=== PATIENT | female | born 1975 | race African-American/Black ===

== ENCOUNTER 2019-05-13 18:28 | Inpatient (IN) | payer SELFPAY ==
--- NOTE | 2019-05-13 18:59 | RAD ---
XR Chest Pa Lat STANDARD History: Cough and chest pain Comparison: Radiograph January 07, 2019 Findings: Lungs are clear. No pneumothorax or effusion. Cardiac silhouette and mediastinal contours a re within normal limits. No acute osseous abnormality. Impression: No acute intrathoracic abnormality.
[2019-05-13 19:36] LABS: Bacteria/HPF None Seen HPF (None Seen); Bilirubin Negative (Negative); Blood, Urine 1+ (Negative); Clarity Clear (Clear); Glucose, Urine (Dipstick) Normal (Negative); Leukocyte Negative Leu/uL (Negative); Nitrite Negative (Negative); Protein, Urine (Dipstick) 30 mg/dL (Neg-Trace); Urobilinogen Normal mg/dL (Less than 2); WBC/HPF 0-3 HPF (0-3)
[2019-05-13] MEDS ORDERED: Diltiazem 125 MG/25 ML ONE (19:51)
[2019-05-13] MEDS ORDERED: Magnesium 2 GM/50 ML BAG (IN WATER) ONE (19:51)
[2019-05-13] MEDS ORDERED: Dexamethasone 4 mg/ml Vial ONE (19:51)
[2019-05-13] MEDS ORDERED: Albuterol Sulfate 2.5 mg/3 ml Neb ONE (19:52)
[2019-05-13 20:24] LABS: #Basophils 0.1 thou/uL (0.0-0.2); #Eosinphils 0.3 thou/uL (0.0-0.7); #Lymphocytes 3.2 thou/uL (1.20-3.40); #Monocytes 0.4 thou/uL (0.11-0.59); #Neutrophils 5.7 thou/uL (1.40-6.50); %Eosinophils 3.2 % (0.0-10.0); %Lymphocytes 33.1 % (21.0-51.0); %Monocytes 4.1 % (0.0-10.0); %Neutrophils 58.5 % (42.0-75.0); Hemoglobin 13.3 g/dL (12.0-16.0); Mean Corpuscular Hemoglobin 27.9 pg (27.0-31.0); Mean Corpuscular Volume 82.2 fL (78.0-98.0); Mean Platelet Volume 8.3 fL (7.4-10.4); Platelet Count 251 thou/uL (130-400); RBC Distribution Width 12.8 % (11.5-14.5); Red Blood Cell (RBC) Count 4.77 mill/uL (4.20-5.40); White Blood Cell (WBC) Count 9.8 thou/uL (4.8-10.8)
[2019-05-13 20:45] LABS: ALT (SGPT) 27 U/L (8-55); AST (SGOT) 20 U/L (5-34); Alkaline Phosphatase 93 U/L (40-110); Anion Gap 14 mmol/L (10-20); BUN (Urea Nitrogen) 12 mg/dL (7.0-18.7); Bilirubin, Total 0.3 mg/dL (0.2-1.2); CK (CPK) 121 U/L (29-168); Calc. Creatinine Clearance 0 mL/min (70-130); Calcium 8.7 mg/dL (7.8-10.44); Carbon Dioxide 30 mmol/L (22-29); Chloride 98 mmol/L (98-107); Estimated GFR-MDRD 72; Globulin 3.5 g/dL (2.4-3.5); Glucose 88 mg/dL (70-105); Lipase 20 U/L (8-78); Protein, Total 7.5 g/dL (6.0-8.3); Sodium 139 mmol/L (136-145)
[2019-05-13 20:54] LABS: Potassium 2.7 mmol/L (3.5-5.1)
[2019-05-13] MEDS ORDERED: Potassium Chloride 20 MEQ/100 ML PREMIX BAG ONE (20:58)
[2019-05-13] MEDS ORDERED: Potassium Chloride 20 MEQ TAB ONE (20:59)
[2019-05-13] MEDS ORDERED: Ondansetron PF 4 MG/2 ML Vial ONE (21:22)
[2019-05-13] MEDS ORDERED: Aspirin Chewable 81 MG TAB ONE (22:35)
[2019-05-13] MEDS ORDERED: hydrALAZINE 20 MG/ML VIAL ONE (22:35)
[2019-05-14 00:47] LABS: Troponin I 0.032 ng/mL (< 0.028)
[2019-05-14] MEDS ORDERED: Ondansetron ODT 4 MG TAB SL PRN (01:45)
[2019-05-14] MEDS ORDERED: Sodium Chloride 0.9% 1,000 ML IV SCH (01:45)
[2019-05-14] MEDS ORDERED: Ondansetron PF 4 MG/2 ML Vial IVP PRN ×2 (01:45→10:20)
[2019-05-14] MEDS ORDERED: hydrALAZINE 20 MG/ML VIAL SLOW IVP PRN (01:49)
[2019-05-14 03:22] LABS: Troponin I 0.041 ng/mL (< 0.028)
[2019-05-14 03:45] VITALS: BMI 34.6
[2019-05-14] MEDS ORDERED: Calcium Carbonate 500 MG ChewTAB PO PRN (10:20)
[2019-05-14] MEDS ORDERED: Acetaminophen 325 MG TAB PO PRN (10:20)
[2019-05-14] MEDS ORDERED: Ondansetron ODT 4 MG TAB PO PRN (10:20)
[2019-05-14] MEDS ORDERED: Senokot S 8.6-50 MG TAB PO PRN (10:20)
[2019-05-14] MEDS ORDERED: cloNIDine 0.1 MG TAB PO PRN (10:26)
[2019-05-14] MEDS ORDERED: Lisinopril 2.5 MG TAB PO SCH (10:30)
[2019-05-14] MEDS ORDERED: Carvedilol 6.25 MG TAB PO SCH ×2 (10:30)
[2019-05-14 11:14] LABS: Anion Gap 10 mmol/L (10-20); BUN (Urea Nitrogen) 11 mg/dL (7.0-18.7); Calc. Creatinine Clearance 93 mL/min (70-130); Calcium 7.9 mg/dL (7.8-10.44); Carbon Dioxide 26 mmol/L (22-29); Chloride 103 mmol/L (98-107); Estimated GFR-MDRD 84; Glucose 138 mg/dL (70-105); Potassium 3.4 mmol/L (3.5-5.1); Sodium 136 mmol/L (136-145)
[2019-05-14] MEDS ORDERED: Losartan 25 MG TAB PO SCH (11:15)
[2019-05-14 11:18] LABS: BHCG - Serum Negative (NEGATIVE); Pregs Control Background? CLEAR/WHITE (CLR/WHITE); Pregs Control Bar Appear? YES (CONTROL BAR)
[2019-05-14 11:23] LABS: Troponin I 0.713 ng/mL (< 0.028)
[2019-05-14] MEDS: Potassium Chloride 20 MEQ TAB PO SCH ×2 (11:39→17:36)
[2019-05-14] MEDS: Cyclobenzaprine 10 MG TAB PO PRN (11:42)
[2019-05-14] MEDS ORDERED: Aspirin 81 mg Enteric Coated Tablet PO SCH (12:00)
[2019-05-14] MEDS: Carvedilol 6.25 MG TAB PO SCH (17:36)
[2019-05-14] MEDS: ALPRAZolam 0.25 MG TAB PO PRN (17:44)
[2019-05-14] MEDS: Doxycycline 100 MG CAP PO SCH (19:55)
[2019-05-14] MEDS ORDERED: Amlodipine 5 MG TAB PO SCH ×2 (21:00)
[2019-05-14] MEDS ORDERED: Carvedilol 25 MG TAB PO SCH (21:00)
[2019-05-15 05:55] LABS: Anion Gap 12 mmol/L (10-20); BUN (Urea Nitrogen) 18 mg/dL (7.0-18.7); Calc. Creatinine Clearance 83 mL/min (70-130); Calcium 7.8 mg/dL (7.8-10.44); Carbon Dioxide 23 mmol/L (22-29); Chloride 106 mmol/L (98-107); Estimated GFR-MDRD 73; Glucose 105 mg/dL (70-105); Sodium 137 mmol/L (136-145)
[2019-05-15 06:51] LABS: CKMB 6.3 ng/mL (0-6.6)
[2019-05-15] MEDS ORDERED: Nitroglycerin 0.4 MG TAB (25 Tab Bottle) ONE (07:19)
--- NOTE | 2019-05-15 07:22 | HP ---
PRIMARY CARE: [facility]. CHIEF COMPLAINT: Chest discomfort with shortness of breath. HISTORY OF PRESENT ILLNESS: The patient is a 44-year-old female who recently relocated to [place], presented to the hospital with above complaints. The patient has history of hypertension and asthma. She denies recent asthma exacerbation. The patient recently had flu-like symptoms up to temperature of 101 along with cough. Earlier today, her symptoms got worse along with chest discomfort and worsening shortness of breath, for which she presented to the emergency room. The chest discomfort was pressure-like 8/10 without any radiation. She denies recent immobilization, travel. The cough was essentially dry. She denies any orthopnea or paroxysmal nocturnal dyspnea. No heartburn or dyspepsia reported. In the emergency room, initial vital signs showed temperature 98.7, respirations of 16, pulse rate of 83 with a blood pressure of 209/124. A chest x-ray showed increased bronchopulmonary markings. She received Levaquin, aspirin, 20 mg of hydralazine, Zofran, potassium, magnesium, 20 mg of IV Cardizem, 10 mg of Decadron, albuterol nebulizer treatment, DuoNeb along with IV fluids due to transient hypotension with blood pressure of 80/36. She denies any chest discomfort at this time. Shortness of breath, significantly improved. PAST MEDICAL HISTORY: 1. Hypertension. 2. Mild intermittent asthma. 3. ?CHF 4. ?TIA PAST SURGICAL HISTORY: 1. x3. 2. Hernia repair. 3. Ovarian biopsy. 4. Partial hysterectomy. ALLERGIES: THE PATIENT IS ALLERGIC TO CODEINE AND SULFA. CURRENT HOME MEDICATION: 1. Albuterol inhaler as needed. 2. Two weeks ago, the patient was started on hypertension medications at Urgent [facility] in [place]. 3. The patient takes amlodipine 10 mg daily. 4. Carvedilol 25 mg b.i.d.. SOCIAL HISTORY: The patient currently works at [employer]. She denies current use of smoking, alcohol, or drug use. FAMILY HISTORY: Negative for premature coronary artery disease. REVIEW OF SYSTEMS: All other review of systems was reviewed and were found negative. PHYSICAL EXAMINATION: VITAL SIGNS: As discussed above. GENERAL: A 44-year-old female, in no apparent distress. Anxious appearing. HEENT: Head, atraumatic and normocephalic. Sclerae anicteric. Moist mucous membrane. No oral lesion. NECK: Supple. No JVD appreciated. No carotid bruit. LUNGS: Clear to auscultation bilaterally. No wheezing, rales, or rhonchi. HEART: S1, S2 present. Regular rate and rhythm. No rubs or gallops. ABDOMEN: Soft, nontender. Bowel sounds present. EXTREMITIES: No edema or calf tenderness. NEUROLOGIC: Cranial nerves 2 through 12 are normal on examination. Power was 5 /5 in all extremities. PSYCHIATRY: Alert, awake, and oriented x3. Normal affect. SKIN: Warm and dry. LYMPH NODE: No palpable lymph nodes in the neck. PERIPHERAL VASCULAR: Radial pulses palpable bilaterally. MUSCULOSKELETAL: No joint swelling or tenderness. DIAGNOSTIC TESTS: EKG by my review showed left ventricular hypertrophy with nonspecific ST-T wave changes. Sinus rhythm. WBC 9.8 with hemoglobin 13.3. Potassium 2.7 with troponin of 0.041. Urinalysis was negative for wbc or bacteria. Chest x-ray by my review as discussed above. Blood cultures have been negative so far. IMPRESSION: 1. Hypertensive urgency. 2. Shortness of breath, suspected to be secondary to asthma exacerbation versus mild pulmonary edema. 3. History of hypertension with hypertensive cardiomyopathy. 4. Obesity with a BMI of 34.6. 5. Hypokalemia. 6. Elevated troponin secondary to type 2 myocardial infarction. PLAN: The patient will be monitored on the telemetry unit. We will resume her home medications at low dosages. Empiric doxycycline will be started for possible acute bronchitis. We will add low-dose losartan. We will replace potassium. Echocardiogram will be obtained. We will consult Cardiology. We will recheck troponin in a.m. We will keep the patient n.p.o. past midnight. Vital signs q.4 hourly. We will consult dietitian. The patient was extensively counseled to be compliant with antihypertensives. Plan of care was discussed with the patient in detail. She stated understanding. Job ID: [id number] [facility]
[2019-05-15] MEDS ORDERED: Nitroglycerin 0.4 MG TAB (25 Tab Bottle) PO PRN (08:06)
[2019-05-15] MEDS ORDERED: Labetalol HCl 100 MG/20 ML VIAL SLOW IVP PRN (08:09)
[2019-05-15] MEDS ORDERED: Carvedilol 6.25 MG TAB PO SCH ×2 (08:15→17:00)
[2019-05-15] MEDS ORDERED: Aspirin 81 mg Enteric Coated Tablet PO SCH (09:00)
[2019-05-15] MEDS ORDERED: Lisinopril 2.5 MG TAB PO SCH (09:00)
[2019-05-15] MEDS ORDERED: Losartan 25 MG TAB PO SCH (09:00)
[2019-05-15] MEDS: Aspirin 325 mg Enteric Coated Tablet PO SCH (09:37)
[2019-05-15] MEDS: Losartan 25 MG TAB PO SCH (09:37)
[2019-05-15] MEDS: Doxycycline 100 MG CAP PO SCH ×2 (09:37→20:16)
[2019-05-15] MEDS: Carvedilol 6.25 MG TAB PO SCH (09:38)
[2019-05-15] MEDS ORDERED: Communication Order-Pharmacy FS SCH (12:15)
[2019-05-15] MEDS ORDERED: Diazepam 5 MG TAB PO SCH (12:15)
[2019-05-15] MEDS ORDERED: Sodium Chloride 0.9% 1,000 ML IV SCH (12:15)
[2019-05-15] MEDS ORDERED: Nitroglycerin 100MG/250ML BOT 0 ML ONE (12:26)
[2019-05-15] MEDS ORDERED: Lidocaine 1% (PF) 30 ML VIAL ONE (12:26)
[2019-05-15] MEDS ORDERED: Heparin 10,000 UNITS/1 ML VIAL ONE (12:26)
[2019-05-15] MEDS ORDERED: Fentanyl 100 MCG/2 ML VIAL ONE (13:22)
[2019-05-15] MEDS ORDERED: Midazolam HCl 2 mg/2 ml Vial ONE (13:22)
[2019-05-15] MEDS ORDERED: Metoprolol Tartrate 5 MG/5 ML VIAL ONE (14:00)
[2019-05-15] MEDS ORDERED: hydrALAZINE 20 MG/ML VIAL ONE (14:00)
[2019-05-15] MEDS ORDERED: Nitroglycerin 4.9 GM Bottle ONE (14:03)
[2019-05-15 14:06] LABS: Medtox Reader # READER 4
[2019-05-15 14:07] LABS: Amphetamine Not Detected (NotDetected); Barbiturates Screen Not Detected (NotDetected); Benzodiazepine Screen Detected (NotDetected); Cocaine Metabolite Screen Not Detected (NotDetected); Medtox Control Line Valid? VALID (VALID); Methadone Not Detected (NotDetected); Methamphetamine Not Detected (NotDetected); Opiate Screen Not Detected (NotDetected); Oxycodone Screen Not Detected (NotDetected); Phencyclidine (PCP) Not Detected (NotDetected); THC/Cannabinoid Screen Not Detected (NotDetected); Tricyclic Screen Detected (NotDetected)
[2019-05-15] MEDS ORDERED: Nitroglycerin 2% Ointment 1 INCH/1 GM Packet ONE ×2 (14:10→14:27)
[2019-05-15 14:14] LABS: Critical Call Chem Troponin I RESULT DECREASING
[2019-05-15] MEDS ORDERED: Enalaprilat Dihydrate 1.25 MG/ML VIAL ONE (14:18)
[2019-05-15] MEDS ORDERED: Nitroglycerin 0.4 MG TAB (25 Tab Bottle) SL PRN (14:30)
[2019-05-15] MEDS ORDERED: Sodium Chloride 0.9% 200 ML IV PRN (14:30)
[2019-05-15 14:32] LABS: CKMB 3.9 ng/mL (0-6.6)
[2019-05-15] MEDS: ALPRAZolam 0.25 MG TAB PO PRN (15:38)
[2019-05-15] MEDS: Sodium Chloride 0.9% 1,000 ML IV SCH (15:40)
[2019-05-15] MEDS ORDERED: Nebivolol HCl 5 MG TAB PO SCH (16:00)
--- NOTE | 2019-05-15 17:15 | CON ---
DATE OF CONSULTATION: 05/15/2019 REASON FOR CONSULTATION: Chest pain, increased troponin level. HISTORY OF PRESENT ILLNESS: Ms. Fontaine is a 44-year-old woman with history of severe hypertension. She states that she came to the hospital the night before last with severe hypertension and pressure noted across her chest, like "someone sitting on my chest." The pain gradually resolved. Initially, cardiac enzymes were borderline with followup troponin level 1 to 1.032. The patient had some discomfort yesterday, and then, this morning when she was walking around she felt tight in her chest again. She states when she works, she feels short of breath with exertion and also feels pressure in her chest. No history of smoking. The patient otherwise does not have a history of diabetes, otherwise has been in relatively good physical condition, but she has this uncontrolled hypertension very difficult to control. Her blood pressure this morning, however, was 130/69. REVIEW OF SYSTEMS: CONSTITUTIONAL: No significant weight gain or loss. HEENT: Vision, no changes. Hearing, no changes. PULMONARY: No cough or wheezing. GASTROINTESTINAL: No nausea, vomiting, or diarrhea. SKIN: No rashes. NEUROLOGIC: No unilateral weakness or numbness. PSYCHIATRIC: No unusual depression or anxiety. PHYSICAL EXAMINATION: GENERAL: This is a pleasant patient, resting comfortably, in no distress. VITAL SIGNS: Blood pressure now is 130/69, pulse is 70 and it is regular, it is sinus on the monitor. HEENT: Eyes, sclerae nonicteric. Mouth, mucous membranes moist. NECK: Supple. No lymphadenopathy. LUNGS: Clear. No wheezing, rales, or rhonchi. CARDIAC: Normal S1, normal S2. There is no murmur, rub, or gallop. ABDOMEN: Soft and nontender. EXTREMITIES: Warm and dry. No clubbing. No cyanosis or edema. Good peripheral pulses. IMAGING STUDIES: EKG, sinus rhythm, left ventricular pressure with repolarization changes. The initial EKG also showed some ST depression in leads V3 through V6. Echocardiogram to my interpretation shows severe concentric left ventricular hypertrophy with normal to hyperdynamic left ventricle. ASSESSMENT: 1. Hypertension . 2. Chest pressure, probably mostly related to hypertension and hypertensive heart disease, but cannot exclude the possibility of underlying coronary artery disease, especially with continued chest tightness with controlled blood pressure. Recommend consideration for cardiac catheterization. Discussed the options of stress testing versus cardiac catheterization. Catheterization would be the most definitive test. Discussed risk including a stroke, heart attack, iodine allergy, interfering with the blood supply to the leg or kidney, and risk of stent thrombosis, stent restenosis all discussed. She understands and wished to proceed. The patient prefers a strategy as opposed to going to the stress testing, which may not be as conclusive. Job ID: [id number]
[2019-05-15] MEDS: Cyclobenzaprine 10 MG TAB PO PRN (20:16)
[2019-05-15] MEDS ORDERED: Atorvastatin Calcium 10 MG TAB PO SCH (21:00)
--- NOTE | 2019-05-15 21:48 | PDOC.HOSPP ---
- Subjective Encounter Date: 05/15/19 Encounter Time: 07:45 Subjective: Patient seen and examined for HTN urgency. Intermittent CP - improves with NTG. No SOB. No other complaints. No overnight events - Objective Vital Signs & Weight: Vital Signs (12 hours) Temp Pulse Resp BP BP Pulse Ox 05/15/19 20:51 69 18 100 05/15/19 19:03 97.6 F 59 L 16 151/88 H 98 05/15/19 15:00 97.9 F 53 L 18 136/84 100 05/15/19 12:30 98.2 F 70 18 177/99 H 99 05/15/19 10:27 63 16 100 Weight Weight 160 lb I&O: 05/14/19 05/15/19 05/16/19 06:59 06:59 06:59 Intake Total 1050 980 Output Total 1400 Balance -350 980 Result Diagrams: 05/13/19 20:09 05/15/19 05:11 Additional Labs: Laboratory Tests 05/15/19 05:10 Troponin I 1.032 H* EKG Reviewed by me: Yes (Tele SR) Hospitalist ROS - Review of Systems Respiratory: denies: cough, dry, shortness of breath, hemoptysis, SOB with excertion, pleuritic pain, sputum, wheezing, other Cardiovascular: denies: chest pain, palpitations, orthopnea, paroxysmal noc. dyspnea, edema, light headedness, other - Medication Medications: Active Medications Generic Name Dose Route Start Last Admin Trade Name Freq PRN Reason Stop Dose Admin Acetaminophen 650 mg 05/14/19 10:20 05/14/19 13:35 Tylenol PO 650 mg Q4H PRN Administration Headache/Fever/Mild Pain (1-3) Albuterol/Ipratropium 3 ml 05/14/19 11:00 05/15/19 20:51 Duoneb NEB 3 ml [id number] SVETLANA Administration Alprazolam 0.25 mg 05/14/19 10:31 05/15/19 15:38 Xanax PO 0.25 mg BIDPRN PRN Administration Anxiety Aspirin 325 mg 05/15/19 09:00 05/15/19 09:37 Ecotrin PO 325 mg DAILY SVETLANA Administration Atorvastatin Calcium 10 mg 05/15/19 21:00 05/15/19 20:16 Lipitor PO 10 mg HS SVETLANA Administration Cyclobenzaprine HCl 10 mg 05/14/19 10:29 05/15/19 20:16 Flexeril PO 10 mg TIDPRN PRN Administration Muscle Spasm Doxycycline Hyclate 100 mg 05/14/19 21:00 05/15/19 20:16 Vibramycin PO 100 mg BID SVETLANA Administration Sodium Chloride 1,000 mls @ 50 mls/hr 05/15/19 14:28 05/15/19 15:40 Normal Saline 0.9% IV 1,000 mls .Q20H SVETLANA Administration Losartan Potassium 25 mg 05/15/19 09:00 05/15/19 09:37 Cozaar PO 25 mg DAILY SVETLANA Administration Nebivolol 5 mg 05/15/19 16:00 05/15/19 15:38 Bystolic PO 5 mg 1600 SVETLANA Administration - Exam General Appearance: NAD Neck: supple, no JVD Heart: RRR, no gallops Respiratory: CTAB, no rales Gastrointestinal: soft, non-tender, non-distended, normal bowel sounds Extremities: no edema Hosp A/P - Plan DVT proph w/SCDs IMPRESSION: 1. Hypertensive urgency. 2. SOB due to Asthma exacerbation versus mild pulmonary edema. 3. History of hypertension with hypertensive cardiomyopathy. 4. Obesity with a BMI of 34.6. 5. Hypokalemia. 6. Elevated troponin secondary to type 2 myocardial infarction. PLAN: Cont Losartan Cont ASA Await Echo Await Cardio input Cont Nebs/Doxy Cont other meds as below
[2019-05-16 08:11] VITALS: TEMP 97.5
[2019-05-16] MEDS: Aspirin 325 mg Enteric Coated Tablet PO SCH (09:56)
[2019-05-16] MEDS: Sodium Chloride 0.9% 1,000 ML IV SCH (09:56)
[2019-05-16] MEDS: Doxycycline 100 MG CAP PO SCH (09:56)
[2019-05-16] MEDS: Losartan 25 MG TAB PO SCH (10:48)
[2019-05-16] MEDS ORDERED: NIFEdipine XL 30 MG TAB PO SCH ×2 (11:15→16:00)
[2019-05-16] MEDS: ALPRAZolam 0.25 MG TAB PO PRN (11:41)
[2019-05-16 12:09] VITALS: BP 160/87
--- NOTE | 2019-05-16 23:15 | EKG ---
Test Reason : Blood Pressure : / mmHG Vent. Rate : 083 BPM Atrial Rate : 083 BPM P-R Int : 142 ms QRS Dur : 084 ms QT Int : 438 ms P-R-T Axes : 047 013 072 degrees QTc Int : 514 ms Normal sinus rhythm Possible Left atrial enlargement Left ventricular hypertrophy Prolonged QT Abnormal ECG Confirmed by HAN STALLINGS, ARGELIA ([id number]), editorial intern RYDER MARTINEZ ([id number]) on 05/16/2019 11:15:32 PM Referred By: Confirmed By:ARGELIA SHORT MD
--- NOTE | 2019-05-16 23:16 | EKG ---
Test Reason : Blood Pressure : / mmHG Vent. Rate : 078 BPM Atrial Rate : 078 BPM P-R Int : 146 ms QRS Dur : 088 ms QT Int : 524 ms P-R-T Axes : 082 053 052 degrees QTc Int : 597 ms Normal sinus rhythm Possible Left atrial enlargement Left ventricular hypertrophy with repolarization abnormality Prolonged QT Abnormal ECG No changes Confirmed by HAN STALLINGS, ARGELIA ([id number]), assistant film editor RYDER MARTINEZ ([id number]) on 05/16/2019 11:16:13 PM Referred By: Confirmed By:ARGELIA SHORT MD
--- NOTE | 2019-05-17 00:17 | DIS ---
DATE OF ADMISSION: 05/13/2019 DATE OF DISCHARGE: 05/16/2019 DISCHARGE DISPOSITION: Home. FOLLOWUP: 1. Follow up with primary care physician at [facility] in 1 week. 2. Follow up with Dr. Monteiro in 2 to 3 weeks. ALLERGIES: THE PATIENT IS ALLERGIC TO CODEINE, HYDRALAZINE, AND SULFA. DISCHARGE MEDICATIONS: 1. Carvedilol 12.5 mg b.i.d. 2. Procardia XL 30 mg b.i.d. 3. Proventil inhaler as needed. The patient was seen and examined on the day of discharge. Denies any new complaints. BRIEF HOSPITAL COURSE: The patient is a 44-year-old female with hypertension, presented to the emergency room with chest discomfort and shortness of breath. A workup was consistent with hypertensive urgency with blood pressure of 209/124. She was monitored on the telemetry unit. She was started on carvedilol along with low-dose losartan. Troponin next day went up to 1.032. She was evaluated by Cardiology and underwent cardiac catheterization that showed normal coronaries with hypertensive heart disease. Dr. Monteiro recommended Procardia XL along with Bystolic; however due to lack of prescription coverage, this was changed to carvedilol along with Procardia XL. Her echocardiogram showed moderate concentric left ventricular hypertrophy with mild tricuspid regurgitation, ejection fraction 55% to 60%. The patient was extensively counseled to be compliant with antihypertensive regimen. FINAL DIAGNOSES: 1. Hypertensive urgency. 2. Episode of hypotension in the emergency room. 3. Shortness of breath, probably secondary to mild pulmonary edema versus asthma exacerbation. 4. Hypertensive heart disease. 5. Obesity with a BMI of 34.6. 6. Hypokalemia, replaced. 7. Elevated troponin secondary to type 2 myocardial infarction. DIAGNOSTIC TESTS: Potassium 2.7. Maximum troponin was 1.032. Job ID: [id number]
--- NOTE | 2019-05-18 11:33 | EKG ---
Test Reason : C/O OF CHEST PAIN Blood Pressure : / mmHG Vent. Rate : 065 BPM Atrial Rate : 065 BPM P-R Int : 148 ms QRS Dur : 084 ms QT Int : 486 ms P-R-T Axes : 038 020 077 degrees QTc Int : 505 ms Normal sinus rhythm Voltage criteria for left ventricular hypertrophy Prolonged QT Abnormal ECG When compared with ECG of 13-MAY-2019 23:24, (Unconfirmed) ST no longer depressed in Inferior leads ST no longer depressed in Lateral leads T wave inversion no longer evident in Anterior leads T wave inversion more evident in Lateral leads QT has shortened Confirmed by Anca CARUSO ([id number]) on 05/18/2019 11:33:25 AM Referred By: TIM Confirmed By:Anca CARUSO
== END 2019-05-16 14:24 | disposition home or self-care (01) | DRG 281 ==
LOC: ERS 18:28 → 2NO 21:30
PROVIDERS: ADMIT Hospitalist; ATTEND Hospitalist
PROC: 4A023N7 Measurement of Cardiac Sampling and Pressure, Left Heart, Percutaneous Approach (ICD-10-PCS; principal; 2019-05-15)
PROC: B2111ZZ Fluoroscopy of Multiple Coronary Arteries using Low Osmolar Contrast (ICD-10-PCS; 2019-05-15)
DX: I16.0 Hypertensive urgency (principal); I21.A1 Myocardial infarction type 2; J45.901 Unspecified asthma with (acute) exacerbation; I43 Cardiomyopathy in diseases classified elsewhere; J81.1 Chronic pulmonary edema; E66.9 Obesity, unspecified; E87.6 Hypokalemia; I11.9 Hypertensive heart disease without heart failure; I07.1 Rheumatic tricuspid insufficiency; I95.9 Hypotension, unspecified; Z68.34 Body mass index [BMI] 34.0-34.9, adult; Z90.711 Acquired absence of uterus with remaining cervical stump; Z88.2 Allergy status to sulfonamides; Z88.5 Allergy status to narcotic agent
CPT/HCPCS: 36415; 71046; 76942; 80048; 80053; 80306; 81003; 81015; 82550; 82553; 83605; 83690; 83735; 83880; 84484; 84703; 85025; 87040; 93005; 93010; 93306; 93458; 94640; 96365; 96366; 96367; 96375; 99152; 99153; C1769; J0360; J1100; J1644; J1956; J2001; J2250; J2405; J3010; J3475; J3480; J7611; J7620; Q0162